=== PATIENT | female | born 1985 | race Caucasian/White ===

== ENCOUNTER → 2023-10-24 16:05 | Outpatient (REF) | payer OTHER, SELFPAY | LOC: CLAB 16:05 | PROVIDERS: ATTENDING PHYSICIAN Otolaryngology | DX: J01.90 Acute sinusitis, unspecified (principal) | CPT/HCPCS: 88304; 88311 ==

== ENCOUNTER → 2025-02-28 09:12 | Outpatient (REF) | payer OTHER, SELFPAY | LOC: WDC 09:12 | PROVIDERS: ATTENDING PHYSICIAN Obstetrics & Gynecology; FAMILY PHYSICIAN Family Medicine | DX: R92.8 Other abnormal and inconclusive findings on diagnostic imaging of breast (principal) | CPT/HCPCS: 76642; 77061; 77065 ==